=== PATIENT | female | born 1990 | race African-American/Black ===

== ENCOUNTER 2021-01-09 21:00 | Emergency (ER) | payer OTHER, MEDICAID ==
[~2021-01-09] VITALS: Ht 165.1 cm; Wt 54.4 kg
[2021-01-09 21:41] LABS: HEMATOCRIT 40.1 % (37.0-47.0); MCH 31.5 pg (26.0-34.0); MCHC 32.4 g/dL (28.0-37.0); MPV 7.8 fl. (7.2-11.1); RBC 4.13 mil/uL (4.20-5.00); RDW-CV 13.6 % (10.5-14.5); WBC 11.9 thou/uL (4.0-11.0)
[2021-01-09 21:45] LABS: URINE BILIRUBIN NEGATIVE (Negative); URINE BLOOD NEGATIVE (Negative); URINE CLARITY CLEAR; URINE COLOR YELLOW; URINE GLUCOSE-RANDOM NEGATIVE (Negative); URINE KETONES 1+ (Negative); URINE LEUKOCYTES NEGATIVE (Negative); URINE NITRITE NEGATIVE (Negative); URINE PROTEIN 1+ (Negative); URINE SPECIFIC GRAVITY >= 1.030 (1.005-1.030); URINE UROBILINOGEN 0.2 E.U./dl (0.2-1.0)
[2021-01-09 21:52] LABS: POTASSIUM 2.7 mmol/L (3.5-5.1)
[2021-01-09 21:54] LABS: AMP/METHAMP Negative (Negative); BARBITURATES Negative (Negative); BENZODIAZEPINES Negative (Negative); COCAINE Negative (Negative); METHADONE Negative (Negative); OPIATES Negative (Negative); PCP Negative (Negative); THC POSITIVE (Negative)
[2021-01-09 21:55] LABS: ALBUMIN 4.1 g/dL (3.4-5.0); TOTAL BILIRUBIN 0.4 mg/dL (<0.1-1.0); TOTAL PROTEIN 7.8 g/dL (6.4-8.2)
[2021-01-09 22:21] LABS: ACETAMINOPHEN < 2 ug/mL (10-30); ALCOHOL < 10 mg/dL (<10); SALICYLATE < 2.8 mg/dL (2.8-20.0)
[2021-01-10 03:24] VITALS: BP 116/68
== END 2021-01-10 03:25 | disposition home or self-care (01) ==
LOC: M.ERS 21:00
PROVIDERS: Personal Emergency Response Attendant
DX: F19.150 Other psychoactive substance abuse with psychoactive substance-induced psychotic disorder with delusions (principal); Z20.822 Contact with and (suspected) exposure to COVID-19